=== PATIENT | male | born 1945 | race Caucasian/White ===

== ENCOUNTER 2019-07-15 09:20 | Inpatient (IN) ==
[2019-07-10 12:14] LABS: Appearance,Urine CLEAR; Bilirubin,Urine NEG (NEG); Color,Urine YELLOW; Culture Indicated,Urine NO; Glucose,Urine (UA) NEGATIVE (NEG); Ketones,Urine NEG (NEG); Leukocyte Esterase,Urine NEG /uL (NEG); Nitrate,Urine NEG (NEG); Protein,Urine NEG (NEG); Urine Blood NEG mg/dL (<0.03); Urobilinogen,Urine NEG (NEG)
[2019-07-10 14:44] LABS: Basophils # (Auto) 0 K/mcL (0.00-0.30); Basophils % (Auto) 0 % (0.0-2.0); Eosinophils # (Auto) 0.01 K/mcL (0.00-0.70); Eosinophils % (Auto) 0.2 % (0.0-7.0); Granulocytes % (Auto) 80.7 % (38.0-78.0); Hematocrit 45.3 % (40.1-51.0); Hemoglobin 14.7 g/dL (13.7-17.5); Lymphocytes # (Auto) 0.74 K/mcL (1.50-4.80); Mean Cell Volume 92.4 fL (80.0-100.0); Mean Corpuscular HGB Conc 32.5 g/dL (31.0-36.0); Mean Platelet Volume 12.1 fL (7.4-10.4); Monocytes # (Auto) 0.44 K/mcL (0.10-0.90); Monocytes % (Auto) 7.1 % (1.0-12.0); Platelet Count 162 K/mcL (140-440); Red Cell Distribution Width 12.8 % (11.5-14.5); WBC 6.2 K/mcL (4.50-11.00)
[2019-07-10 15:08] LABS: Blood Urea Nitrogen 14 mg/dl (8-23); Calcium 9.8 mg/dl (8.6-10.4); Carbon Dioxide 27 mmol/L (22-30); Chloride 102 mmol/L (96-108); Glomerular Filtration Rate 88; Glucose 103 mg/dL (70-105)
[~2019-07-15 09:20] MED LIST: ceFAZolin 2 GM in DEXTROSE 5% IN WATER 50 ML IV SCH; oxyCODONE 10 MG TAB.ER.12H PO SCH
[2019-07-15] MEDS ORDERED: IPRATROPIUM/ALBUTEROL 3 ML AMPUL.NEB NEB PRN ×2 (10:00→14:53)
[2019-07-15] MEDS ORDERED: SCOPOLAMINE 1 PATCH PATCH TOPICAL PRN (10:00)
[2019-07-15] MEDS: PREGABALIN 75 MG CAPSULE PO SCH ×2 (11:32→15:16)
[2019-07-15] MEDS: CELECOXIB 200 MG CAPSULE PO SCH ×2 (11:32→15:17)
[2019-07-15] MEDS ORDERED: SUCCINYLCHOLINE 20 MG/ML ML IV ONE (13:11)
[2019-07-15] MEDS ORDERED: DEXAMETHASONE 10 MG/ML VIAL IV ONE (13:11)
[2019-07-15] MEDS ORDERED: PHENYLEPHRINE 10 MG/ML VIAL IV ONE (13:11)
[2019-07-15] MEDS ORDERED: KETAMINE 100 MG/ML ML IV ONE (13:11)
[2019-07-15] MEDS ORDERED: LIDOCAINE HCL/PF 100 MG/5 ML SYRINGE IV ONE (13:11)
[2019-07-15] MEDS ORDERED: ESMOLOL 100 MG/10 ML VIAL IV ONE (13:11)
[2019-07-15] MEDS ORDERED: ROPIVACAINE HCL/PF 30 ML VIAL IJ ONE (13:11)
[2019-07-15] MEDS ORDERED: PROPOFOL 200 MG/20 ML VIAL IV ONE (13:11)
[2019-07-15] MEDS ORDERED: ePHEDrine 50 MG/ML AMPUL IV ONE (13:11)
[2019-07-15] MEDS ORDERED: GLYCOPYRROLATE 0.2 MG/ML VIAL IV ONE (13:11)
[2019-07-15] MEDS ORDERED: fentaNYL 250 MCG/5 ML VIAL IV ONE (13:11)
[2019-07-15] MEDS ORDERED: GENTAMICIN SULFATE 800 MG/20 ML VIAL IR ONE (13:43)
--- NOTE | 2019-07-15 14:34 | Brief Operative Note ---
Date of procedure: 07/15/19 Pre-op diagnosis: right shoulder rtc tear arthropathy, biceps tendonitis Post-op diagnosis: same Procedure: right reverse total shoulder arthroplasty, biceps tenodesis Grafts/Implants: Yes Anesthesia: ARSLAN Surgeon: Martín Carty Volunteer Recruitment Coordinator: Karen Castillo Estimated blood loss (cc): 150 Specimens Removed/Pathology: none sent Condition: stable Disposition: PACU
[2019-07-15] MEDS ORDERED: ONDANSETRON 4 MG/2 ML VIAL IV PRN ×2 (14:35→14:53)
[2019-07-15] MEDS ORDERED: METHOCARBAMOL 750 MG TABLET PO PRN (14:35)
[2019-07-15] MEDS ORDERED: BISACODYL 10 MG SUPP.RECT PR PRN (14:35)
[2019-07-15] MEDS ORDERED: TRANEXAMIC ACID 1,000 MG/10 ML VIAL IV SCH (14:35)
[2019-07-15] MEDS ORDERED: BENZOCAINE/MENTHOL 1 LOZENGE PO PRN (14:35)
[2019-07-15] MEDS ORDERED: HYDROcodone/APAP 10/325MG TABLET PO PRN (14:35)
[2019-07-15] MEDS ORDERED: POLYETHYLENE GLYCOL 3350 17 GM PACKET PO PRN (14:35)
[2019-07-15] MEDS ORDERED: KETOROLAC 15 MG/ML VIAL IV PRN (14:35)
[2019-07-15] MEDS ORDERED: MAGNESIUM HYDROXIDE 30 ML ORAL.SUSP PO PRN (14:35)
[2019-07-15] MEDS ORDERED: ONDANSETRON 4 MG ODT TABLET SL PRN (14:35)
[2019-07-15] MEDS ORDERED: FLEETS ADULT ENEMA PR PRN (14:35)
--- NOTE | 2019-07-15 14:35 | Discharge Summary ---
Ortho Discharge - TSA - Patient Instructions Diet: Regular Diet Activity: non weight bearing Total Shoulder Protocol: Leave immobilizer in place except for bathing and ROM. Abduction pillow. Continue to wear sling until seen by physician. Codman Pendulum : These exercises use momentum produced by your body to move your shoulder joint. Bend your knees and shift your weight to your front leg, then back, allowing your arm to swing in the same directions. Using the same technique, alternately shift your weight between your right and left legs, allowing your arm to swing from side to side. These exercises are also performed in counterclockwise and clockwise circular motions. Typically these exercises are performed several times per day, for a set number repetitions or minutes, such as 20 times in a row or 5 minutes at a time. Dressing Care: May shower in 2 days - Follow Up Plan Disposition: Home, Self-Care Prognosis: Good Rehab Potential: Good I certify that the patient requires SNF services: No Overall status at discharge: patient is progressing back to baseline
[2019-07-15] MEDS ORDERED: ePHEDrine 50 MG/ML AMPUL IV PRN (14:53)
[2019-07-15] MEDS ORDERED: FLUMAZENIL 0.1 MG/ML ML IV PRN (14:53)
[2019-07-15] MEDS ORDERED: MEPERIDINE 25 MG/ML SYRINGE IV PRN (14:53)
[2019-07-15] MEDS ORDERED: fentaNYL 100 MCG/2 ML VIAL IV PRN (14:53)
[2019-07-15] MEDS ORDERED: METOPROLOL TARTRATE 5 MG/5 ML VIAL IV PRN (14:53)
[2019-07-15] MEDS ORDERED: PROMETHAZINE 25 MG/ML VIAL IV PRN (14:53)
[2019-07-15] MEDS ORDERED: ACETAMINOPHEN 900 MG/90 ML BOTTLE IV ONE (14:53)
[2019-07-15] MEDS ORDERED: NALOXONE HCL 0.4 MG/ML VIAL IV PRN (14:53)
[2019-07-15] MEDS ORDERED: ATROPINE SULFATE 0.4 MG/ML VIAL IV PRN (14:53)
[2019-07-15] MEDS ORDERED: HYDROmorphone 2 MG/ML VIAL IV PRN (14:53)
[2019-07-15] MEDS ORDERED: diphenhydrAMINE 50 MG/ML VIAL IV PRN (14:53)
[2019-07-15] MEDS ORDERED: METHOCARBAMOL 1,000 MG/10 ML VIAL IV PRN (14:53)
[2019-07-15] MEDS ORDERED: LACTATED RINGERS 1,000 ML IV SCH (15:00)
--- NOTE | 2019-07-15 15:13 | Operative Note ---
DATE OF OPERATION: 07/15/2019 PREOPERATIVE DIAGNOSIS: Right rotator cuff tear arthropathy with biceps tendonitis. POSTOPERATIVE DIAGNOSIS: Right rotator cuff tear arthropathy with biceps tendonitis. PROCEDURE: 1. Right reverse total shoulder arthroplasty. 2. Right shoulder soft tissue biceps tenodesis. SURGEON: Shanique Carty M.D. COMPUTER FORENSICS EXAMINER SURGEON: Karen Castillo PA-C. This provider's expertise and technical skill were required throughout the case. The SHIRA assisted with preoperative coordination, intraoperative retraction, wound closure, dressing and splint application, as well as postoperative documentation and care coordination. ANESTHESIA: General. ESTIMATED BLOOD LOSS: 200 mL COMPLICATIONS: None noted. SPECIMENS REMOVED: None. DRAINS: None. IMPLANTS: DePuy Delta Xtend cementless metaglene LUCERO coated, DePuy Delta Xtend locking metaglene screw 4.5 x 30 x2, nonlocking metaglene screw 4.5 x 18 x2, DePuy Delta Xtend glenosphere standard 38 mm, DePuy Delta Xtend modular humeral stem size 12 LUCERO coated cementless, DePuy Delta Xtend modular eccentric epiphysis size 2 right LUCERO coated cementless, DePuy Delta Xtend humeral polyethylene cup standard 38 +3. INDICATIONS: The patient has had a longstanding history of worsening pain in the shoulder that has failed conservative treatment. Radiographs have confirmed advanced degenerative joint disease and a failed rotator cuff. After a long discussion about treatment options, the patient elected to proceed with a reverse total shoulder arthroplasty. The risks and benefits were discussed with the patient in detail including, but not limited to, the risks of anesthesia, problems with the heart or lungs related to anesthesia, infection, compromise or injury to the nerves and blood vessels, deep venous thrombosis, pulmonary embolism, pneumonia, continued pain after surgery, worsening pain or symptoms after surgery, swelling, loss of motion, instability, fracture, arm length discrepancy, and need for repeat surgery. DESCRIPTION OF PROCEDURE: The patient was seen in the preanesthesia waiting room where all questions were answered and the correct side and site were identified and marked. The patient was transferred to the operating room and administered the anesthetic and given preoperative antibiotics. A time-out was then called. The patient was placed in the modified beach chair position with all prominences well padded. The extremity was prepped and draped from the fingers up to the neck. A standard deltopectoral skin incision was created. Dissection was carried down to the deltopectoral groove and the cephalic vein was isolated medially and retracted laterally with the deltoid. Retractors were placed and the coracobrachialis was split up to the coracoacromial ligament allowing retraction of the conjoined tendon. We split the subscapularis 1 cm medial to the bicipital groove and extended the split into the rotator interval. This was tagged for later repair. The supraspinatus and infraspinatus had been previously torn and retracted. The biceps was cut and a soft tissue tenodesis was performed into the anterior shoulder with #2 FiberWire. A capsular release was performed in a posterior subperiosteal direction along the humerus. The humeral head was then dislocated. We established intramedullary access and hand reamed up to get good cortical chatter with the [facility] Delta XTEND reverse total shoulder instrumentation. We then used the intramedullary guide and set to about 5 degrees of retroversion. The proximal humerus cut was performed and osteophytes were removed. A metal protector plate was then placed. Attention was then turned to the glenoid. Retractors were placed for optimal visualization and the labrum was excised in its entirety. A centralizing Steinmann pin was placed just into the posterior inferior quadrant in a standard fashion. We reamed over the pin to remove all the cartilage and get to a good base for the prosthesis. The drill was then placed over for the central peg. A cementless Metaglene was then impacted into place. We then drilled, measured, and placed the four screws starting inferior, then superior, then anterior, and finally posterior. The superior locking screw was lined up at the base of the coracoid process. We then impacted the head onto the Metaglene and tightened down in a standard fashion. Attention was then turned back to the humerus. Proximal reaming was performed off the intramedullary guide into the humeral head, using the eccentric guide to allow best coverage. We again set version and broached up to a stable implant. Trials were placed and good tension, motion, and stability were obtained at this point. Trials were removed and the final press fit femoral prosthesis was impacted into place with measured version. The final polyethylene was placed and the shoulder was reduced and again checked for motion, tension, and stability. We irrigated with 3 liters of antibiotic saline and closed the subscapularis with # 2 FiberWire. We irrigated again and closed the deltopectoral interval with several # 0 Vicryl figure of eight sutures. The subcutaneous layer was closed with 2-0 Vicryl and the skin was closed with 4-0 Monocryl in a subcuticular fashion. A sterile pressure dressing was applied and the patient was placed into an abduction sling. All needle and sponge counts were correct. The patient was transferred to the recovery room in stable condition. JBailee:elvira Job ID: [id number] Doc ID: [id number] Shanique Carty MD
--- NOTE | 2019-07-15 15:35 | XRay Report ---
CLINICAL INFORMATION: Postsurgical follow-up TECHNIQUE: Portable AP and axillary views of the right shoulder COMPARISON: None. FINDINGS: Status post right reverse shoulder arthroplasty. Alignment is anatomic. There is postsurgical soft tissue gas IMPRESSION: Status post reverse shoulder arthroplasty Interpreted and Authenticated by: Martín Moreno 07/15/19
[2019-07-15] MEDS: LACTATED RINGERS 1,000 ML IV SCH ×2 (18:01→19:51)
[2019-07-15] MEDS ORDERED: GABAPENTIN 300 MG CAPSULE PO SCH (21:00)
[2019-07-15] MEDS ORDERED: ISOSORBIDE MONONITRATE 30 MG TAB.XL.24H PO SCH (21:00)
[2019-07-15] MEDS ORDERED: TAMSULOSIN 0.4 MG CAPSULE PO SCH (21:00)
[2019-07-15] MEDS ORDERED: ATORVASTATIN 40 MG TABLET PO SCH (21:00)
[2019-07-15] MEDS ORDERED: SENNOSIDES 1 TABLET PO SCH (21:00)
[2019-07-15] MEDS: DOCUSATE SODIUM 100 MG CAPSULE PO SCH (21:28)
[2019-07-15] MEDS: ceFAZolin 1 GM VIAL IV SCH (21:29)
[2019-07-15] MEDS: 0.9 % SODIUM CHLORIDE 10 ML SYRINGE IV SCH (21:30)
[2019-07-16] MEDS: LACTATED RINGERS 1,000 ML IV SCH ×2 (00:40→08:22)
[2019-07-16] MEDS: 0.9 % SODIUM CHLORIDE 10 ML SYRINGE IV SCH (04:38)
[2019-07-16] MEDS: ceFAZolin 1 GM VIAL IV SCH (04:38)
[2019-07-16 07:16] LABS: Hematocrit 37.8 % (40.1-51.0); Hemoglobin 12.3 g/dL (13.7-17.5)
--- NOTE | 2019-07-16 07:59 | Orthopedic Progress Note ---
Subjective Patient information: Note initiated : 07/16/19 at 7:58 am Service Date, if different from initiated Date: [] Patient: Clayton Love 74 y/o M admitted on 07/15/19 for Right Reverse Total Shoulder Arthroplasty . Chief Complaint: [] Interval history: doing well Objective Vital signs: Vital Signs Temp Pulse Resp BP Pulse Ox 07/16/19 04:30 97.3 F 81 16 125/71 95 07/15/19 23:37 97.5 F 92 H 16 137/82 93 07/15/19 20:05 97.9 F 101 H 16 147/84 94 07/15/19 19:33 105 H 150/77 94 07/15/19 18:33 105 H 152/86 93 07/15/19 18:03 96 H 147/90 94 07/15/19 17:33 89 126/71 90 07/15/19 17:18 89 135/71 89 L 07/15/19 17:03 87 144/77 87 L 07/15/19 16:48 86 139/72 86 L 07/15/19 16:33 89 155/87 92 07/15/19 16:08 97.5 F 83 11 L 146/90 94 07/15/19 15:53 98.0 F 89 15 156/83 95 07/15/19 15:38 84 12 139/75 96 07/15/19 15:23 96.9 F L 84 14 134/80 100 07/15/19 15:18 83 9 L 128/71 100 07/15/19 15:13 84 11 L 122/72 100 07/15/19 15:08 97.0 F 84 9 L 146/78 99 07/15/19 15:03 85 10 L 132/80 100 07/15/19 14:58 90 9 L 135/67 99 07/15/19 14:53 97.1 F 88 8 L 133/67 100 07/15/19 10:00 97.4 F 76 18 135/76 95 Intake and Output 07/15/19 07/16/19 07/16/19 21:59 05:59 13:59 Intake Total 1390 1400 Output Total 800 1550 Balance 590 -150 Intake: IV 1390 1000 Lactated Ringers 1,000 ml @ 125 1300 1000 mls/hr IV .Q8H [facility] Rx#: [id number] Oral 400 Output: Urine Catheter Amount 500 600 Straight Cath #2 600 Void Amount 100 950 Estimated Blood Loss 200 Other: Urine Appearance Clear Clear Straight Cath #2 Clear Urine Color Bright Yellow Bright Yellow Straight Cath #2 Pale Urine Odor Normal Normal Straight Cath #2 Normal Weight 141 lb 3.2 oz Intake & Output: Intake & Output 07/15/19 07/16/19 07/16/19 21:59 05:59 13:59 Intake Total 1390 1400 Output Total 800 1550 Balance 590 -150 Weight 141 lb 3.2 oz Intake: IV 1390 1000 Lactated Ringers 1,000 ml @ 125 1300 1000 mls/hr IV .Q8H [facility] Rx#: [id number] Oral 400 Output: Urine Catheter Amount 500 600 Straight Cath #2 600 Void Amount 100 950 Estimated Blood Loss 200 Other: Urine Appearance Clear Clear Straight Cath #2 Clear Urine Color Bright Yellow Bright Yellow Straight Cath #2 Pale Urine Odor Normal Normal Straight Cath #2 Normal Incision: Yes healing Incision clean and dry: Yes Dressing: Yes clean, Yes dry, Yes intact Weight bearing status: non Neurological exam IM: Yes alert, Yes oriented X3, Yes neurovascular intact Extremities exam IM: No calf tenderness, Yes Foot pink and warm, Yes neurovascular intact - Labs CBC & BMP: 07/16/19 04:19 07/10/19 10:50 Labs: 07/16/19 07/10/19 04:19 10:50 Hgb 12.3 L 14.7 Hct 37.8 L 45.3 Assessment and Plan (1) Osteoarthritis, shoulder pod 1 s/p reverse tsa nwb sling pain control home today Status: Acute
[2019-07-16] MEDS: DOCUSATE SODIUM 100 MG CAPSULE PO SCH (08:22)
[2019-07-16] MEDS ORDERED: ASPIRIN 81 MG TAB.CHEW PO SCH (09:00)
[2019-07-16] MEDS ORDERED: FINASTERIDE 5 MG TABLET PO SCH (09:00)
[2019-07-16] MEDS ORDERED: OXYBUTYNIN CHLORIDE 5 MG TABLET PO SCH (09:00)
== END 2019-07-16 09:55 | disposition home or self-care (01) | DRG 483 ==
LOC: MEDSUR 09:40
PROVIDERS: ADMIT Orthopaedic Surgery Sports Medicine; ATTEND Orthopaedic Surgery Sports Medicine

== ENCOUNTER 2020-03-16 05:05 | Inpatient (IN) ==
[2020-03-10 14:12] LABS: Appearance,Urine CLEAR (Clear); Bilirubin,Urine Negative (Negative); Color,Urine YELLOW; Culture Indicated,Urine No; Glucose,Urine (UA) Negative (Negative); Ketones,Urine Negative (Negative); Leukocyte Esterase,Urine Negative /ug (Negative); Nitrate,Urine Negative (Negative); Protein,Urine Negative (Negative); Specific Gravity,Urine 1.019 (1.000-1.035); Urine Blood Negative (Negative); Urobilinogen,Urine Negative
[2020-03-10 14:50] LABS: Basophils # (Auto) 0.01 K/mcL (0.00-0.20); Basophils % (Auto) 0.1 % (0.0-2.0); Eosinophils # (Auto) 0.01 K/mcL (0.00-0.70); Eosinophils % (Auto) 0.1 % (0.0-7.0); Hematocrit 45.1 % (41.0-55.0); Hemoglobin 14.5 g/dL (13.5-16.5); Lymphocytes # (Auto) 0.82 K/mcL (1.50-4.80); Lymphocytes % (Auto) 9.9 % (15.0-49.0); Mean Cell Volume 92.4 fL (80.0-100.0); Mean Corpuscular HGB Conc 32.2 g/dL (31.0-36.0); Mean Platelet Volume 11.8 fL (7.4-10.4); Monocytes # (Auto) 0.58 K/mcL (0.10-0.90); Neutrophils % (Auto) 82.9 % (38.0-78.0); Platelet Count 148 K/mcL (140-440); RBC 4.88 M/mcL (4.50-5.90); Red Cell Distribution Width 12.6 % (11.5-14.5); WBC 8.3 K/mcL (4.5-11.0)
[2020-03-10 21:08] LABS: Blood Urea Nitrogen 18 mg/dL (8-23); Calcium 9.7 mg/dL (8.6-10.4); Carbon Dioxide 25 mmol/L (22-30); Chloride 101 mmol/L (96-108); Glomerular Filtration Rate 87; Glucose 94 mg/dL (70-105)
[2020-03-16] MEDS ORDERED: IPRATROPIUM/ALBUTEROL 3 ML AMPUL.NEB NEB PRN ×2 (05:37→08:50)
[2020-03-16] MEDS ORDERED: SCOPOLAMINE 1 PATCH PATCH TOPICAL PRN (05:37)
[2020-03-16] MEDS ORDERED: CELECOXIB 200 MG CAPSULE PO SCH (06:00)
[2020-03-16] MEDS ORDERED: oxyCODONE 10 MG TAB.ER.12H PO SCH (06:00)
[2020-03-16] MEDS ORDERED: ceFAZolin 2 GM in DEXTROSE 5% IN WATER 50 ML IV SCH (06:00)
[2020-03-16] MEDS ORDERED: PREGABALIN 75 MG CAPSULE PO SCH (06:00)
[2020-03-16] MEDS ORDERED: KETAMINE 100 MG/ML ML ONE (07:34)
[2020-03-16] MEDS ORDERED: PROPOFOL 200 MG/20 ML VIAL IV ONE (07:34)
[2020-03-16] MEDS ORDERED: METOPROLOL TARTRATE 5 MG/5 ML VIAL IV ONE (07:34)
[2020-03-16] MEDS ORDERED: GLYCOPYRROLATE 0.2 MG/ML VIAL IV ONE (07:34)
[2020-03-16] MEDS ORDERED: TRANEXAMIC ACID 1,000 MG/10 ML VIAL IV ONE (07:34)
[2020-03-16] MEDS ORDERED: fentaNYL 100 MCG/2 ML VIAL IV ONE (07:34)
[2020-03-16] MEDS ORDERED: ONDANSETRON 4 MG/2 ML VIAL ONE (07:34)
[2020-03-16] MEDS ORDERED: LIDOCAINE HCL/PF 100 MG/5 ML SYRINGE IV ONE (07:34)
[2020-03-16] MEDS ORDERED: ROCURONIUM 10 MG/ML ML IV ONE (07:34)
[2020-03-16] MEDS ORDERED: DEXAMETHASONE 10 MG/ML VIAL ONE (07:34)
[2020-03-16] MEDS ORDERED: SUGAMMADEX SODIUM 200 MG/2 ML VIAL IV ONE (07:34)
[2020-03-16] MEDS ORDERED: ROPIVACAINE HCL/PF 30 ML VIAL IJ ONE (07:34)
[2020-03-16] MEDS ORDERED: MIDAZOLAM 2 MG/2 ML VIAL ONE (07:34)
[2020-03-16] MEDS ORDERED: GENTAMICIN SULFATE 800 MG/20 ML VIAL IR ONE (08:03)
[2020-03-16] MEDS ORDERED: ACETAMINOPHEN 1,000 MG/100 ML BOTTLE IV ONE (08:50)
[2020-03-16] MEDS ORDERED: BENZOCAINE/MENTHOL 1 LOZENGE PO PRN ×2 (08:50→08:53)
[2020-03-16] MEDS ORDERED: METHOCARBAMOL 1,000 MG/10 ML VIAL IV PRN (08:50)
[2020-03-16] MEDS ORDERED: fentaNYL 100 MCG/2 ML VIAL IV PRN (08:50)
[2020-03-16] MEDS ORDERED: NALOXONE HCL 0.4 MG/ML VIAL IV PRN (08:50)
--- NOTE | 2020-03-16 08:51 | General Surgery Procedure Note ---
Date of procedure: Note initiated : 03/16/20 at 8:50 am Service Date, if different from initiated Date: [] Pre-op diagnosis: left shoulder rtc tear arthropathy, biceps tendonitis Post-op diagnosis: same Procedure: left reverse total shoulder arthroplsaty, biceps tenodesis Findings: oa Anesthesia: GETA Surgeon: Martín Carty Silk Soaker: Madhu Avalos Estimated blood loss: 150 Pathology: none sent Condition: stable Disposition: PACU
--- NOTE | 2020-03-16 08:52 | Discharge Plan ---
Discharge Instructions - TSA Patient Instructions Total Shoulder Protocol: Leave immobilizer in place except for bathing and ROM. Abduction pillow. Continue to wear sling until seen by physician. Codman Pendulum : These exercises use momentum produced by your body to move your shoulder joint. Bend your knees and shift your weight to your front leg, then back, allowing your arm to swing in the same directions. Using the same technique, alternately shift your weight between your right and left legs, allowing your arm to swing from side to side. These exercises are also performed in counterclockwise and clockwise circular motions. Typically these exercises are performed several times per day, for a set number repetitions or minutes, such as 20 times in a row or 5 minutes at a time. Dressing Care: May shower in 2 days Discharge Plan Patient/Caregiver Discharge Instructions Activity: non-weight bearing Diet: Regular Diet Prescriptions: No Action atorvastatin 40 MG tablet 40 mg PO HS RF: 0 isosorbide mononitrate 30 MG tablet extended release 24 hr 15 mg PO HS RF: 0 flaxseed oil 1,000 MG capsule 1,000 mg PO HS RF: 0 tamsulosin 0.4 MG capsule 0.8 mg PO HS RF: 0 ferrous sulfate 325 MG tablet 325 mg PO QAMCC RF: 0 gabapentin 300 MG capsule 300 mg PO HS RF: 0 aspirin 81 MG tablet,chewable 81 mg PO HS RF: 0 oxybutynin chloride 5 MG tablet 5 mg PO DAILY RF: 0 finasteride 5 MG tablet 5 mg PO DAILY RF: 0 oyhqbbyn-lzux-WC-calcium-mins 1 TAB tablet 1 tab PO DAILY RF: 0 omega 0-mxo-qou-fish oil 1,000 MG capsule 1,000 mg PO DAILY RF: 0 calcium carb-mag ox-zinc sulf 1 EACH tablet 1 tab PO DAILY RF: 0 Follow Up Plan Follow up with: Martín Carty MD [Physician] - Patient Disposition: Home, Self-Care Rehab Potential: Good I certify that the patient requires SNF services: No Overall status at discharge: patient is progressing back to baseline Discharge Orders: Discharge Order (Routine); Ordered 03/17/20 Ordered By: Martín Carty
[2020-03-16] MEDS ORDERED: MAGNESIUM HYDROXIDE 30 ML ORAL.SUSP PO PRN (08:53)
[2020-03-16] MEDS ORDERED: ONDANSETRON 4 MG ODT TABLET SL PRN (08:53)
[2020-03-16] MEDS ORDERED: morphine 4 MG/ML VIAL IV PRN (08:53)
[2020-03-16] MEDS ORDERED: FLEETS ADULT ENEMA PR PRN (08:53)
[2020-03-16] MEDS ORDERED: TRANEXAMIC ACID 1,000 MG/10 ML VIAL IV SCH (08:53)
[2020-03-16] MEDS ORDERED: KETOROLAC 15 MG/ML VIAL IV PRN (08:53)
[2020-03-16] MEDS ORDERED: POLYETHYLENE GLYCOL 3350 17 GM PACKET PO PRN (08:53)
[2020-03-16] MEDS ORDERED: ONDANSETRON 4 MG/2 ML VIAL IV PRN (08:53)
[2020-03-16] MEDS ORDERED: METHOCARBAMOL 750 MG TABLET PO PRN (08:53)
[2020-03-16] MEDS ORDERED: BISACODYL 10 MG SUPP.RECT PR PRN (08:53)
[2020-03-16] MEDS ORDERED: LACTATED RINGERS 1,000 ML IV SCH (09:00)
--- NOTE | 2020-03-16 09:54 | XRay Report ---
INDICATION: Post-Op Total Shoulder TECHNIQUE: AP and axillary views of the left shoulder COMPARISON: None. FINDINGS: Status post left reverse shoulder arthroplasty. Normal anatomic alignment demonstrated. There is postsurgical soft tissue and intra-articular gas IMPRESSION: Status post left reverse shoulder arthroplasty Interpreted and Authenticated by: Martín Moreno 03/16/20
[2020-03-16] MEDS: LACTATED RINGERS 1,000 ML IV SCH ×2 (11:42→18:40)
[2020-03-16] MEDS: FINASTERIDE 5 MG TABLET PO SCH (12:02)
[2020-03-16] MEDS: OXYBUTYNIN CHLORIDE 5 MG TABLET PO SCH (12:02)
[2020-03-16] MEDS: DOCUSATE SODIUM 100 MG CAPSULE PO SCH ×2 (12:02→20:56)
[2020-03-16] MEDS: 0.9 % SODIUM CHLORIDE 10 ML SYRINGE IV SCH ×2 (13:35→22:25)
--- NOTE | 2020-03-16 14:30 | Operative Note ---
DATE OF OPERATION: 03/16/2020 PREOPERATIVE DIAGNOSES: 1. Left shoulder rotator cuff tear arthropathy. 2. Left shoulder proximal biceps tendinitis. POSTOPERATIVE DIAGNOSES: 1. Left shoulder rotator cuff tear arthropathy. 2. Left shoulder proximal biceps tendinitis. PROCEDURE: 1. Left reverse total shoulder arthroplasty. 2. Left shoulder proximal biceps tenodesis soft tissue. SURGEON: Shanique Carty M.D. PEANUT SALTER SURGEON: Madhu Avalos PA-C. The PA's assistance was required for the safe and efficient completion of the entire case. This providers expertise and technical skill were required throughout the case. The PA assisted with preoperative coordination, intraoperative retraction, wound closure, dressing and splint application, as well as postoperative documentation and care coordination. ANESTHESIA: General. ESTIMATED BLOOD LOSS: 150 mL. COMPLICATIONS: None noted. SPECIMENS REMOVED: None. DRAINS: None. IMPLANTS: DePuy Delta Xtend cementless metaglene LUCERO coated, cementless; DePuy Delta Xtend locking metaglene screw 4.5 x 30 times 2, 4.5 x 18 nonlocking x2; Delta Xtend lateralized glenosphere +2, 38 mm standard; Delta Xtend humeral polyethylene cup standard 38, +3; DePuy Delta Xtend modular eccentric epiphysis LUCERO coated, cementless; DePuy Delta Xtend modular humeral stem size 12, LUCERO coated, cementless. INDICATIONS: The patient has had a longstanding history of worsening pain in the shoulder that has failed conservative treatment. Radiographs have confirmed advanced degenerative joint disease and a failed rotator cuff. After a long discussion about treatment options, the patient elected to proceed with a reverse total shoulder arthroplasty. The risks and benefits were discussed with the patient in detail including, but not limited to, the risks of anesthesia, problems with the heart or lungs related to anesthesia, infection, compromise or injury to the nerves and blood vessels, deep venous thrombosis, pulmonary embolism, pneumonia, continued pain after surgery, worsening pain or symptoms after surgery, swelling, loss of motion, instability, fracture, arm length discrepancy, and need for repeat surgery. DESCRIPTION OF PROCEDURE: The patient was seen in the preanesthesia waiting room where all questions were answered and the correct side and site were identified and marked. The patient was transferred to the operating room and administered the anesthetic and given preoperative antibiotics. A time-out was then called. The patient was placed in the modified beach chair position with all prominences well padded. The extremity was prepped and draped from the fingers up to the neck. A standard deltopectoral skin incision was created. Dissection was carried down to the deltopectoral groove and the cephalic vein was isolated medially and retracted laterally with the deltoid. Retractors were placed and the coracobrachialis was split up to the coracoacromial ligament allowing retraction of the conjoined tendon. We split the subscapularis 1 cm medial to the bicipital groove and extended the split into the rotator interval. This was tagged for later repair. The supraspinatus and infraspinatus had been previously torn and retracted. The biceps was cut and a soft tissue tenodesis was performed into the anterior shoulder with #2 FiberWire. A capsular release was performed in a posterior subperiosteal direction along the humerus. The humeral head was then dislocated. We established intramedullary access and hand reamed up to get good cortical chatter with the [email or web address] Delta XTEND reverse total shoulder instrumentation. We then used the intramedullary guide and set to about 5 degrees of retroversion. The proximal humerus cut was performed and osteophytes were removed. A metal protector plate was then placed. Attention was then turned to the glenoid. Retractors were placed for optimal visualization and the labrum was excised in its entirety. A centralizing Steinmann pin was placed just into the posterior inferior quadrant in a standard fashion. We reamed over the pin to remove all the cartilage and get to a good base for the prosthesis. The drill was then placed over for the central peg. A cementless Metaglene was then impacted into place. We then drilled, measured, and placed the four screws starting inferior, then superior, then anterior, and finally posterior. The superior locking screw was lined up at the base of the coracoid process. We then impacted the head onto the Metaglene and tightened down in a standard fashion. Attention was then turned back to the humerus. Proximal reaming was performed off the intramedullary guide into the humeral head, using the eccentric guide to allow best coverage. We again set version and broached up to a stable implant. Trials were placed and good tension, motion, and stability were obtained at this point. Trials were removed and the final press fit femoral prosthesis was impacted into place with measured version. The final polyethylene was placed and the shoulder was reduced and again checked for motion, tension, and stability. We irrigated with 3 liters of antibiotic saline and closed the subscapularis with # 2 FiberWire. We irrigated again and closed the deltopectoral interval with several # 0 Vicryl figure of eight sutures. The subcutaneous layer was closed with 2-0 Vicryl and the skin was closed with 4-0 Monocryl in a subcuticular fashion. A sterile pressure dressing was applied and the patient was placed into an abduction sling. All needle and sponge counts were correct. The patient was transferred to the recovery room in stable condition. . MARILYN:deborah Job ID: [id number] Doc ID: [id number] Shanique Carty MD
[2020-03-16] MEDS: ceFAZolin 1 GM VIAL IV SCH ×2 (15:15→23:55)
[2020-03-16] MEDS ORDERED: TAMSULOSIN 0.4 MG CAPSULE PO SCH (21:00)
[2020-03-16] MEDS ORDERED: ASPIRIN 81 MG TAB.CHEW PO SCH (21:00)
[2020-03-16] MEDS ORDERED: ISOSORBIDE MONONITRATE 30 MG TAB.XL.24H PO SCH (21:00)
[2020-03-16] MEDS ORDERED: GABAPENTIN 300 MG CAPSULE PO SCH (21:00)
[2020-03-16] MEDS ORDERED: ATORVASTATIN 40 MG TABLET PO SCH (21:00)
[2020-03-16] MEDS ORDERED: SENNOSIDES 1 TABLET PO SCH (21:00)
[2020-03-17] MEDS: HYDROcodone/APAP 10/325MG TABLET PO PRN ×2 (04:20→08:51)
[2020-03-17] MEDS: 0.9 % SODIUM CHLORIDE 10 ML SYRINGE IV SCH (06:09)
[2020-03-17 07:01] LABS: Hematocrit 36.4 % (41.0-55.0); Hemoglobin 11.5 g/dL (13.5-16.5)
--- NOTE | 2020-03-17 07:56 | Orthopedic Progress Note ---
SUBJECTIVE Subjective Patient information: Note initiated : 03/17/20 at 7:55 am Service Date, if different from initiated Date: [] Patient: Clayton Love 74 y/o M admitted on 03/16/20 for Left Reverse Total Shoulder Arthroplasty Possible . Chief Complaint: []doing well. no pain Constitutional Vitals: Vital Signs Temp Pulse Resp BP Pulse Ox 98.2 F 75 14 115/66 94 03/17/20 04:17 03/17/20 04:17 03/17/20 04:17 03/17/20 04:17 03/17/20 04:17 Period Temp Pulse Resp BP Sys/Garay Pulse Ox Last 24 Hr 97.0 F-98.8 F 59-109 6-18 114-145/64-81 91-100 Intake and Output 03/16/20 03/17/20 03/17/20 21:59 05:59 13:59 Intake Total 1000 250 Output Total 1250 650 Balance -250 -400 Weight 146 lb 12.8 oz Intake & Output: Intake & Output 03/16/20 03/17/20 03/17/20 21:59 05:59 13:59 Intake Total 1000 250 Output Total 1250 650 Balance -250 -400 Weight 146 lb 12.8 oz Intake: IV 1000 Lactated Ringers 1,000 ml @ 125 1000 mls/hr IV .Q8H [facility] Rx#: [id number] Oral 250 Output: Urine Catheter Amount 1000 Void Amount 250 650 Other: Urine Appearance Clear Clear Urine Color Bright Yellow Bright Yellow Urine Odor Strong Expanded Upper Extremity Exam Shoulder exam: Present swelling; Absent deformity, ecchymosis, erythema and tenderness OBJ DATA Labs CBC & Chem 7: 03/17/20 05:41 03/10/20 10:19 Labs: Abnormal Lab Results 03/17/20 05:41 Hgb 11.5 L Hct 36.4 L Meds: Medications Hydrocodone Bitart/Acetaminophen (Pullman 10/325mg) 0 tab PO Q4HP PRN; Protocol PRN Reason: Per Pain Protocol Last Admin: 03/17/20 04:20 Dose: 1 tab Documented by: Aspirin (Aspirin) 81 mg PO HS [facility] Last Admin: 03/16/20 20:56 Dose: 81 mg Documented by: Atorvastatin Calcium (Lipitor) 40 mg PO HS [facility] Last Admin: 03/16/20 20:57 Dose: 40 mg Documented by: Bisacodyl (Dulcolax) 10 mg [place] Q2-3DAYS PRN PRN Reason: Constipation Docusate Sodium (Colace) 100 mg PO BID [facility] Last Admin: 03/16/20 20:56 Dose: 100 mg Documented by: Finasteride (Proscar) 5 mg PO DAILY [facility] Last Admin: 03/16/20 12:02 Dose: 5 mg Documented by: Gabapentin (Neurontin) 300 mg PO [facility] Last Admin: 03/16/20 20:56 Dose: 300 mg Documented by: Isosorbide Mononitrate (Imdur) 15 mg PO [facility] Last Admin: 03/16/20 20:56 Dose: 15 mg Documented by: Ketorolac Tromethamine (Toradol) 15 mg IV Q6HP PRN; Protocol PRN Reason: Per Pain Protocol Stop: 03/18/20 08:55 Last Admin: 03/16/20 23:56 Dose: 15 mg Documented by: Magnesium Hydroxide (Milk Of Magnesia) 30 ml PO BIDP PRN PRN Reason: Constipation Methocarbamol (Robaxin) 750 mg PO Q6HP PRN PRN Reason: Muscle Spasm Morphine Sulfate (Morphine) 0 mg IV Q1HP PRN; Protocol PRN Reason: Per Pain Protocol Ondansetron HCl (Zofran) 4 mg IV Q4HP PRN; Protocol PRN Reason: Nausea And Vomiting Ondansetron HCl (Zofran Odt) 4 mg SL Q4HP PRN; Protocol PRN Reason: Nausea And Vomiting Oxybutynin Chloride (Ditropan) 5 mg PO DAILY [facility] Last Admin: 03/16/20 12:02 Dose: 5 mg Documented by: Polyethylene Glycol (Miralax) 17 gm PO DAILYP PRN PRN Reason: Constipation Senna (Senokot) 2 tab PO [facility] Last Admin: 03/16/20 20:56 Dose: 2 tab Documented by: Sodium Biphosphate/Sodium Phosphate (Fleets Adult) 1 dose [place] Q3-4DAYS PRN PRN Reason: Constipation Sodium Chloride (Saline Flush) 10 ml IV Q8 [facility] Last Admin: 03/17/20 06:09 Dose: 10 ml Documented by: Tamsulosin HCl (Flomax) 0.8 mg PO [facility] Last Admin: 03/16/20 20:57 Dose: 0.8 mg Documented by: Throat Lozenges (Cepacol) 1 lozenge PO PRN PRN PRN Reason: Sore Throat A/P Narrative A/P Narrative: pod 1 s/p reverse tsa pain control pt d/p planning - home today Time Spent With Patient Time: Total time spent is greater than 50% in coordination of care (as documented) at patient's floor/unit and/or counseling patient:
[2020-03-17] MEDS: DOCUSATE SODIUM 100 MG CAPSULE PO SCH (08:48)
[2020-03-17] MEDS: OXYBUTYNIN CHLORIDE 5 MG TABLET PO SCH (08:48)
[2020-03-17] MEDS: FINASTERIDE 5 MG TABLET PO SCH (08:48)
== END 2020-03-17 10:14 | disposition home or self-care (01) | DRG 483 ==
LOC: MEDSUR 05:05 → EDSTATUS 09:30
PROVIDERS: ADMIT Orthopaedic Surgery Sports Medicine; ATTEND Orthopaedic Surgery Sports Medicine